=== PATIENT | male | born 1945 | race Caucasian/White ===

== ENCOUNTER 2017-08-23 14:22 | Emergency (ER) | payer OTHER ==
[~2017-08-23] VITALS: Ht 157.5 cm; Wt 43.8 kg
[2017-08-23 14:29] VITALS: TEMP 36.7; Ht 157.5 cm; Wt 43.8 kg
--- NOTE | 2017-08-23 14:52 | EMERGENCY ROOM VISIT NOTE ---
History Report prepared by Venancio: Tino Zayas Under the Supervision of: Dr. Devin Talbert M.D. First contact with patient: 14:31 Chief Complaint: CARDIAC ASSESSMENT Stated Complaint: PINCHING CHEST PAIN Nursing Triage Summary: triage note; pt reports left sided chest pain over the past several days that happens when walking or doing deep breathing excersises. pt denies any pain at this time. History of Present Illness The patient is a 72 year old male who presents to the Emergency Room with complaints of intermittent left sided chest pain over the last several days which is worsened with walking. The patient denies any current discomfort. The patient states that a couple nights ago while he was lying down he got a chest heaviness for a few seconds which resolved quickly. He denies any heart attacks in the past, though his father of a heart attack. The patient states that when he was walking yesterday and developed the CP, he did not get any shortness of breath, diaphoresis, nausea, arm pain, or jaw pain. He rested and the pain resolved. Source of History: patient Onset: last several days Position: chest (left) Symptom Intensity: no discomfort Timing: intermittent Modifying Factors (Worsening): other (walking and deep inspiration) Associated Symptoms: No diaphoresis, No SOB, No nausea Review of Systems See HPI for pertinent positives & negatives. A total of 10 systems reviewed and were otherwise negative. Family History FH: heart attack Social History Smoking Status: Former Smoker Marital Status: Housing Status: lives with family Occupation Status: retired Current/Historical Medications Scheduled Amlodipine (Norvasc), 2.5 MG PO DAILY Aspirin (Aspirin), 1 TAB PO DAILY Atorvastatin (Lipitor), 1 TAB PO DAILY Metformin Hcl (Glucophage), 500 MG PO BID Montelukast Sodium (Montelukast Sodium), 1 TAB PO DAILY Miscellaneous Medications Amitriptyline Hcl (Elavil), 50 MG PO Allergies Coded Allergies: Amoxicillin (Unverified Allergy, Mild, unknown, 08/23/17) Physical Exam Vital Signs Date Time Temp Pulse Resp B/P (MAP) Pulse Ox O2 Delivery O2 Flow Rate FiO2 08/23/17 16:50 89 18 126/69 98 Room Air 08/23/17 15:25 63 08/23/17 15:08 64 18 127/68 100 Room Air 08/23/17 15:08 100 Room Air 08/23/17 14:29 36.7 74 18 138/77 100 Room Air Physical Exam GENERAL: Patient is in no acute distress. HEENT: No acute trauma, normocephalic atraumatic, mucous membranes moist, no nasal congestion, no scleral icterus. NECK: No stridor, no adenopathy, no meningismus, trachea is midline. LUNGS: Clear to auscultation bilaterally, no wheeze, no rhonchi, breath sounds equal. HEART: Without murmurs gallops or rubs, regular rate and rhythm. ABDOMEN: Soft, nontender, bowel sounds positive, no hernias, no peritonitis. EXTREMITIES: No cyanosis or edema, full range of motion of all the joints without pain or difficulty, no signs for acute trauma. NEUROLOGIC: Oriented x 3, no acute motor or sensory deficits, no focal weakness. SKIN: No rash, no jaundice, no diaphoresis. Medical Decision & Procedures ER Provider Diagnostic Interpretation: Radiology results as stated below per my review and radiologist interpretation: CHEST ONE VIEW PORTABLE CLINICAL HISTORY: Atypical chest pain COMPARISON STUDY: No previous studies for comparison. FINDINGS: The heart is normal in size. There is no failure. There is no lobar consolidation. There is subtle upper lobe interstitial thickening, a finding of uncertain chronicity. No pleural effusions are visualized. There is a probable right apical bleb/bulla present. IMPRESSION: Subtle upper lobe interstitial thickening. No evidence of lobar consolidation. No evidence of failure. Electronically signed by: Adama Huizar M.D. 08/23/2017 3:09 PM Dictated Date/Time: 08/23/2017 3:08 PM Laboratory Results 08/23/17 14:55 08/23/17 14:55 Test 08/23/17 14:55 08/23/17 15:36 Red Blood Count 5.03 M/uL (4.7-6.1) Mean Corpuscular Volume 61.8 fL (80-100) Mean Corpuscular Hemoglobin 20.1 pg (25-34) Mean Corpuscular Hemoglobin Concent 32.5 g/dl (32-36) RDW Standard Deviation 37.1 fL (36.4-46.3) RDW Coefficient of Variation 16.7 % (11.5-14.5) Mean Platelet Volume 9.0 fL (7.4-10.4) Prothrombin Time 10.0 SECONDS (9.0-12.0) Prothromb Time International Ratio 0.9 (0.9-1.1) Activated Partial Thromboplast Time 31.8 SECONDS (21.0-31.0) Partial Thromboplastin Ratio 1.2 Anion Gap 8.0 mmol/L (3-11) Est Creatinine Clear Calc Drug Dose 40.0 ml/min Estimated GFR () 82.4 Estimated GFR (Non- 71.1 BUN/Creatinine Ratio 9.5 (10-20) Calcium Level 8.6 mg/dl (8.5-10.1) Total Bilirubin 0.5 mg/dl (0.2-1) Aspartate Amino Transf (AST/SGOT) 19 U/L (15-37) Alanine Aminotransferase (ALT/SGPT) 23 U/L (12-78) Alkaline Phosphatase 106 U/L (45-117) Troponin I < 0.015 ng/ml (0-0.045) Total Protein 7.8 gm/dl (6.4-8.2) Albumin 3.9 gm/dl (3.4-5.0) Globulin 3.9 gm/dl (2.5-4.0) Albumin/Globulin Ratio 1.0 (0.9-2) Bedside Troponin I < 0.030 ng/ml (0-0.045) Laboratory results reviewed by me. ECG Indication: chest pain Rate (beats per minute): 60 Rhythm: normal sinus Findings: no acute ischemic change, no ectopy ED Course 1431: The patient was evaluated in room C9. A complete history and physical exam was performed. 1444: I discussed the patient's case with Dr. Llanes, Cardiology, and he is going to try to get the patient a stress test today. He wants me to put in for a point of care and a lab troponin. 1539: I reevaluated the patient, and he just left to go get his stress test. 1641: Reevaluated the patient, and he passed his stress test. Discussed results and discharge instructions: He verbalized understanding and agreement. The patient is ready for discharge. Medical Decision Differential Diagnoses include: musculoskeletal pain, pneumonia, pneumothorax, angina, and AR. There is no leukocytosis. The patient is mildly anemic, no old values available for comparison but the patient states his hemoglobin is normally around 10 . No significant electrolyte abnormality, kidney failure or hepatitis. There is no coagulopathy. EKG shows a sinus rhythm, no acute ischemia. Cardiac enzyme testing times one does not show evidence for acute cardiac injury. Chest x-ray shows some chronic change, no mediastinal widening , pneumonia or pneumothorax. The patient presents with a bout of exertional chest pain yesterday. Right now , he is pain-free. His workup today is relatively benign. I spoke to cardiology. Patient was a good candidate for a stress echo. This was performed and was essentially negative. The patient is being discharged. He can follow with his doctors when he returns to [facility]. He will rest for a few days and slowly increase his activity. He will return here for worsening dyspnea or chest pain. Medication Reconcilliation Current Medication List: was personally reviewed by me Blood Pressure Screening Patient's blood pressure: Normal blood pressure Consults Time Called: 1443 Consulting Physician: Dr. Llanes, Cardiology Returned Call: 1445 I discussed the patient's case with Dr. Llanes, Cardiology, and he is going to try to get the patient a stress test today. He wants me to put in for a point of care and a lab troponin. Impression Primary Impression: Precordial chest pain Scribe Attestation The scribe's documentation has been prepared under my direction and personally reviewed by me in its entirety. I confirm that the note above accurately reflects all work, treatment, procedures, and medical decision making performed by me. Departure Information Dispostion Home / Self-Care Referrals No Doctor, Assigned (PCP) Forms IMPORTANT VISIT INFORMATION Patient Instructions My [facility] Additional Instructions return for worsening symptoms ECG and stress testing today were ok
[2017-08-23] MEDS ORDERED: AMLO2.5T PO (15:03)
[2017-08-23] MEDS ORDERED: MONT1TAB5 PO (15:03)
[2017-08-23] MEDS ORDERED: GLC/500 PO (15:03)
[2017-08-23] MEDS ORDERED: AMT50 PO (15:03)
[2017-08-23] MEDS ORDERED: ATOR10TA82 PO (15:03)
[2017-08-23] MEDS ORDERED: ASPI81CH2 PO (15:03)
[2017-08-23 15:08] VITALS: O2SAT 100
[2017-08-23 15:10] LABS: HEMATOCRIT 31.1 % (42-52); MEAN CELL VOLUME 61.8 fL (80-100); MEAN CORPUSCULAR HEMOGLOBIN 20.1 pg (25-34); MEAN CORPUSCULAR HGB CONC 32.5 g/dl (32-36); PLATELET COUNT 308 K/uL (130-400); RED BLOOD COUNT 5.03 M/uL (4.7-6.1); WHITE BLOOD COUNT 8.31 K/uL (4.8-10.8)
--- NOTE | 2017-08-23 15:11 | DIAGNOSTIC IMAGING REPORT ---
CHEST ONE VIEW PORTABLE CLINICAL HISTORY: Atypical chest pain COMPARISON STUDY: No previous studies for comparison. FINDINGS: The heart is normal in size. There is no failure. There is no lobar consolidation. There is subtle upper lobe interstitial thickening, a finding of uncertain chronicity. No pleural effusions are visualized. There is a probable right apical bleb/bulla present. IMPRESSION: Subtle upper lobe interstitial thickening. No evidence of lobar consolidation. No evidence of failure. Electronically signed by: Adama Huizar M.D. 08/23/2017 3:09 PM Dictated Date/Time: 08/23/2017 3:08 PM
[2017-08-23 15:22] LABS: INR 0.9 (0.9-1.1); PARTIAL THROMBOPLASTIN RATIO 1.2
[2017-08-23 15:31] LABS: ALT/SGPT 23 U/L (12-78); AST/SGOT 19 U/L (15-37); BLOOD UREA NITROGEN 10 mg/dl (7-18); BUN/CREATININE RATIO 9.5 (10-20); CALCIUM 8.6 mg/dl (8.5-10.1); CARBON DIOXIDE 24 mmol/L (21-32); CHLORIDE 101 mmol/L (98-107); CREATININE 1.05 mg/dl (0.60-1.40); GLUCOSE 101 mg/dl (70-99); POTASSIUM 3.7 mmol/L (3.5-5.1); SODIUM 133 mmol/L (136-145)
[2017-08-23 15:36] LABS: ALKALINE PHOSPHATASE 106 U/L (45-117)
[2017-08-23 16:50] VITALS: BP 126/69; PULSE 89; O2SAT 98
--- NOTE | 2017-08-23 17:51 | EXERCISE STRESS ECHO ---
*NOTICE TO RECEIVING [employer] This information is strictly Confidential and protected under [place] law. [place] law prohibits you from making any further disclosure of this information unless further disclosure is expressly permitted by the written consent of the person to whom it pertains or is authorized by law. A general authorization for the release of medical or other information is not sufficient for this purpose. Hospital accepts no responsibility if the information is made available to any other person, INCLUDING THE PATIENT. Interpretation Summary * Name: MICHAEL ROSARIO Study Date: 08/23/2017 03:07 PM BP: 130/60 mmHg * Patient Location: [facility] HR: 59 * : 1945 (M/d/yyyy) Gender: Male Height: 62 in * Age: 72 yrs Ethnicity: CA Weight: 96 lb * Ordering Physician: Devin Talbert * Performed By: Leanna Davila RCS * * Reason For Study: Chest Pain * BSA: 1.4 m2 * -- Conclusions -- * Stress Echo: * 1. Negative stress echo for ischemia at 100 % MPHR (see below). * 2. Negative exercise ECG for ischemia at 100 % MPHR. * 3. Appropriate blood pressure response to exercise. * 4. No arrhythmia. * 5. Study terminated due to fatigue and difficulty coordinating his ambulation on treadmill. No chest pain reported. * 6. Fair exercise tolerance. * 7. Technically difficult study. Image quality was good, but obtaining post-stress imaging was difficult and delayed, especially in the apical images. This could affect overall interpretation, but obtained images were without ischemic changes. Procedure Details * ECHOEX, CPT #73096 Left Ventricle * The left ventricle is normal in size. * There is normal left ventricular wall thickness. * Left ventricular systolic function is normal. * Resting wall motion: Normal. Stress wall motion: Appropriate increase in Left ventricular systolic function and decrease in cavity size. No stress induced segmental wall motion abnormalities. * The left ventricular ejection fraction increases normally with stress. The left ventricular end-systolic cavity size reduces post-stress (normal response). The left ventricular wall motion with stress is normal. * No regional wall motion abnormalities noted. Stress Parameters * Sinus bradycardia at 59 bpm. IVCD. Next * Stress ECG: No ST changes. No arrhythmias. * The stress portion of this study was personally supervised by the undersigned interpreting physician. * Rest heart rate was '59' BPM. * Rest blood pressure was '130/60' * Maximum heart rate achieved was 150 bpm. * Maximum heart rate was 100 % of maximum age-predicted heart rate. * Maximum blood pressure was '169/92' * Total exercise time was '6:00' * Maximum exercise MET level achieved was '7.0' METS * Maximum treadmill speed was '2.5' miles per hour. * Maximum treadmill elevation was '12'% grade. * Exercise was terminated due to 'fatigue and difficulty coordinating his ambulation on treadmill' * Normal blood pressure response to exercise. MMode 2D Measurements and Calculations IVSd 0.78 cm LVIDd 3.9 cm LVIDs 2.7 cm LVPWd 0.64 cm IVS/LVPW 1.2 FS 31.5 % EDV(Teich) 67.4 ml ESV(Teich) 27.0 ml EF(Teich) 60.0 % EDV(cubed) 61.1 ml ESV(cubed) 19.6 ml EF(cubed) 67.9 % LV mass(C)d 77.6 grams LV mass(C)dI 55.4 grams/m\S\2 SV(Teich) 40.5 ml SI(Teich) 28.9 ml/m\S\2 SV(cubed) 41.4 ml SI(cubed) 29.6 ml/m\S\2
== END 2017-08-23 17:15 | disposition home or self-care (01) ==
LOC: C.EDB 14:24 → C.EDC 17:15
DX: R07.2 Precordial pain (principal); Z87.891 Personal history of nicotine dependence; Z79.82 Long term (current) use of aspirin; Z79.84 Long term (current) use of oral hypoglycemic drugs; Z79.899 Other long term (current) drug therapy; Z88.1 Allergy status to other antibiotic agents